=== PATIENT | female | born 1995 | race Two or more races ===

== ENCOUNTER 2022-05-08 08:12 | Emergency (ER) | payer OTHER ==
[~2022-05-08] VITALS: Ht 160 cm; Wt 47.7 kg
[2022-05-08] MEDS ORDERED: IPRATROPIUM BROM 0.5 MG/2.5ML INH SOL NEB ONE (08:30)
[2022-05-08] MEDS ORDERED: ALBUTEROL SULF 2.5 MG/0.5ML(0.5%) NEB SOLN NEB ONE (08:30)
[2022-05-08 09:16] VITALS: BP 138/88
[2022-05-08] MEDS ORDERED: PRED20TA2 PO (10:58)
[2022-05-08] MEDS ORDERED: ALBU0.084 NEB (11:09)
== END 2022-05-08 11:09 | disposition home or self-care (01) ==
LOC: ER 08:12
DX: J45.901 Unspecified asthma with (acute) exacerbation (principal)
CPT/HCPCS: 94640; 99283; J7644